=== PATIENT | male | born 1945 | race Caucasian/White ===

== ENCOUNTER → 2016-09-09 | Day surgery (SDC) | payer MEDICARE, OTHER ==
[~2016-09-09] MED LIST: LACTATED RINGER'S 1000 ML INJ 1,000 ML ONE; LISI-363 PO; PROPOFOL 500 MG/50 ML BTL IV ONE
--- NOTE | 2016-09-09 11:57 | GIPROC ---
[facility] [address] [facility], [address] COLONOSCOPY PROCEDURE REPORT EXAM DATE: 09/09/2016 PATIENT NAME: Remberto Rizvi MR #: [id number] BIRTHDATE: 1945 ENDOSCOPIST: Sudhakar Mckeon MD ORDER #: [id number] HISTOLOGY TECHNOLOGIST: Milagro Pradhan RN STATUS: outpatient INDICATIONS: The patient is a 70 yr old male here for a colonoscopy due to high risk patient with previously diagnosed UC pancolitis 8+ years PROCEDURE PERFORMED: Colonoscopy with biopsy MEDICATIONS: None and Per Anesthesia. PREP QUALITY: The [place] Bowel Prep Score was Right colon 2, Mid colon 3, and Left colon 3. Total = 8. PREP TYPE:GoLytely ESTIMATED BLOOD LOSS: None CONSENT: The patient understands the risks and benefits of the procedure and understands that these risks include, but are not limited to: sedation, allergic reaction, infection, perforation and/or bleeding. Alternative means of evaluation and treatment include, among others: physical exam, x-rays, and/or surgical intervention. The patient elects to proceed with this endoscopic procedure. medical equipment was checked for proper function. Hand hygiene and appropriate measures for infection prevention was taken. After the risks, benefits and alternatives of the procedure were thoroughly explained, Informed consent was verified, confirmed and timeout was successfully executed by the treatment team. A digital exam revealed external hemorrhoids The EC-[id number] ([id number]) endoscope was introduced through the anus and advanced to the cecum, which was identified by both the appendix and ileocecal valve. The instrument was then slowly withdrawn as the colon was fully examined. COLON FINDINGS: A 15 x 15cm circumferential patch of abnormal mucosa was found in the sigmoid colon. The mucosa was erythematous, nodular, friable, ulcerated and had petechiae, granularity and pseudopolyps. This was likely consistent with ulcerative colitis disease. Multiple biopsies were performed using cold forceps. A 5 x 5cm linear patch of colitis was found in the ascending colon. The mucosa was friable and had granularity, superficial ulcers and pseudopolyps. This is consistent with ulcerative colitis disease. Multiple biopsies were performed using cold forceps. Severe diverticulosis was noted in the ascending colon. Retroflexed views revealed internal hemorrhoids and Retroflexed views revealed medium internal hemorrhoids The scope was then completely withdrawn from the patient and the procedure terminated. PROCEDURE WITHDRAWAL TIME:7minutes ADVERSE EVENTS: There were no complications. IMPRESSIONS: 1. 15 x 15cm circumferential abnormal mucosa was found in the sigmoid colon; The mucosa was erythematous, nodular, friable, ulcerated and had petechiae, granularity and pseudopolyps; multiple biopsies were performed using cold forceps 2. 5 x 5cm linear colitis was found in the ascending colon; The mucosa was friable and had granularity, superficial ulcers and pseudopolyps; This is consistent with ulcerative colitis.; multiple biopsies were performed using cold forceps 3. Severe diverticulosis was noted in the ascending colon 4. Retroflexed views revealed internal hemorrhoids 5. Retroflexed views revealed medium internal hemorrhoids 6. Revealed external hemorrhoids RECOMMENDATIONS: 1. Await biopsy results. Biopsy results will not be ready for 7-10 days. If you don't hear from us in two weeks, call our office for results. 2. Continue surveillance 3. Yearly hemoccult 4. Asacol 400 mg, two tablets three times a day 5. Follow-up: [facility] 2 week(s) RECALL: Return 1 year Colonoscopy, pending biopsy results Sudhakar Mckeon MD eSigned: Sudhakar Mckeon MD 09/09/2016 11:56 AM cc: Eryn Fields [facility] Ernestine and Beltran Lopes M.D. PATIENT NAME: Remberto Rizvi MR#: [id number]
== END | disposition home or self-care (01) ==
LOC: ESDC 10:00
PROVIDERS: ATTEND Internal Medicine Gastroenterology
DX: Z12.11 Encounter for screening for malignant neoplasm of colon (principal); K51.90 Ulcerative colitis, unspecified, without complications; K57.90 Diverticulosis of intestine, part unspecified, without perforation or abscess without bleeding; K64.8 Other hemorrhoids; K21.0 Gastro-esophageal reflux disease with esophagitis; K29.70 Gastritis, unspecified, without bleeding
CPT/HCPCS: 00740; 00810; 43239; 45380; 88305; J3010; J7120